=== PATIENT | male | born 1965 ===

== ENCOUNTER 2017-07-05 00:19 | Emergency (ER) | payer MEDICAID, OTHER ==
[2017-07-05 00:19] VITALS: BMI 25.1
[2017-07-05 00:44] VITALS: O2SAT 95
--- NOTE | 2017-07-05 00:47 | ED PDOC ---
HPI: General Adult Time Seen by Provider: 07/05/17 00:27 Chief Complaint (Nursing): Medical Clearance Chief Complaint (Provider): ETOH History Per: Patient Additional Complaint(s): Pt arrived with [place] pd, pt under police custody. Pt intoxicated and unsteady on his feet. Awake, alert and oriented x 3. Admits to drinking "3 beers " Denies trauma. Denies pain. Denies any other complaints. Past Medical History Reviewed: Nursing Documentation, Vital Signs, Unable To Obtain Vital Signs: Last Vital Signs Temp 98.0 F 07/05/17 00:30 Pulse 97 H 07/05/17 00:43 Resp 20 07/05/17 00:30 BP 147/88 07/05/17 00:30 Pulse Ox 95 07/05/17 00:47 - Family History Family History: States: Unknown Family Hx - Home Medications Home Medications: Ambulatory Orders Medication Instructions Recorded Unobtainable 04/19/17 - Allergies Allergies/Adverse Reactions: Allergies Allergy/AdvReac Type Severity Reaction Status Date / Time No Known Allergies Allergy Verified 04/19/17 11:46 Review of Systems ROS Statement: Except As Marked, All Systems Reviewed And Found Negative Physical Exam - Reviewed Nursing Documentation Reviewed: Yes Vital Signs Reviewed: Yes - Physical Exam Appears: Positive for: Well, Non-toxic, No Acute Distress Head Exam: Positive for: ATRAUMATIC, NORMAL INSPECTION, NORMOCEPHALIC Skin: Positive for: Normal Color, Warm, DRY Eye Exam: Positive for: EOMI, Normal appearance, PERRL ENT: Positive for: Normal ENT Inspection Neck: Positive for: Normal, Painless ROM Cardiovascular/Chest: Positive for: Regular Rate, Rhythm Respiratory: Positive for: CNT, Normal Breath Sounds Gastrointestinal/Abdominal: Positive for: Normal Exam, Bowel Sounds, Soft Back: Positive for: Normal Inspection Extremity: Positive for: Normal ROM Neurologic/Psych: Positive for: Alert, Oriented - Laboratory Results Result Diagrams: 07/05/17 00:55 07/05/17 00:55 - ECG O2 Sat by Pulse Oximetry: 95 Medical Decision Making Medical Decision Making: IV access established and treatment initiated with IVF. repeat pulse after police left ED, 97 ETOH 429 BUN 29 IVF running Pt remained asleep in ED overnight. Arousable to verbal stimuli Stable for discharge in am repeat pulse 68 Disposition - Clinical Impression Clinical Impression: Alcohol intoxication - Patient ED Disposition Is Patient to be Admitted: No - Disposition Disposition: Routine/Home Disposition Time: 05:51 Condition: STABLE Instructions: Alcohol Intoxication (ED) Forms: [facility] (Danish)
[2017-07-05 01:03] LABS: BASO # 0.1 K/uL (0.0-0.2); BASO % 1.8 % (0.0-2.0); EOS # 0.2 K/uL (0.0-0.7); EOS % 3.4 % (0.0-4.0); HEMOGLOBIN 13.3 g/dL (12.0-18.0); LYMPH # 1.4 K/uL (1.0-4.3); LYMPH % 26.3 % (20.0-40.0); MEAN CELL VOLUME 103.9 fl (80.0-94.0); MEAN CORPUSCULAR HEMOGLOBIN 34.6 pg (27.0-31.0); MEAN CORPUSCULAR HGB CONC 33.3 g/dL (33.0-37.0); MEAN PLATELET VOLUME 7.6 fl (7.2-11.7); MONO # 0.7 K/uL (0.0-0.8); MONO % 14.2 % (0.0-10.0); NEUT # 2.8 K/uL (1.8-7.0); NEUT % 54.3 % (50.0-75.0); NRBC % 0.2 % (0.0-0.0); RBC 3.85 Mil/uL (4.40-5.90); RED CELL DISTRIBUTION WIDTH 12.9 % (11.5-14.5); WHITE BLOOD COUNT 5.2 K/uL (4.8-10.8)
[2017-07-05 01:28] LABS: ALB/GLOB RATIO 1.3 (1.0-2.1); CALCIUM 8.9 mg/dL (8.4-10.2)
[2017-07-05] MEDS ORDERED: Sodium Chloride 0.9% 1,000 ML IV STA (05:46)
[2017-07-05 06:34] VITALS: BP 124/71; PULSE 78; RESP 16; TEMP 97.6
== END 2017-07-05 07:27 | disposition home or self-care (01) ==
LOC: H.ER 00:19
DX: F10.129 Alcohol abuse with intoxication, unspecified (principal)
CPT/HCPCS: 80053; 80320; 85025; 96360; 99282; J7040

== ENCOUNTER 2017-09-12 13:57 | Observation (INO) | payer MEDICAID, OTHER ==
[2017-09-12 13:57] VITALS: BMI 25.1
--- NOTE | 2017-09-12 14:39 | RAD ---
HISTORY: chills COMPARISON: No prior. TECHNIQUE: Chest PA and lateral FINDINGS: LUNGS: There is evidence of a left lower lobe infiltrate although a portion of the infiltrate may lie within the lingula. No right lung infiltrates are seen. PLEURA: No significant pleural effusion identified. No pneumothorax apparent. CARDIOVASCULAR: Heart is normal in size. Aorta is normal in size. No hilar enlargement is seen. No vascular congestion is noted. OSSEOUS STRUCTURES: No significant abnormalities. VISUALIZED UPPER ABDOMEN: Normal. OTHER FINDINGS: None. IMPRESSION: Left lower lung field pneumonia.
[2017-09-12] MEDS ORDERED: Multivitamin (MVI) 10 ML, Thiamine 100 MG, Folic Acid 1 MG in Sodium Chloride 0.9% 1,00... IV ONE (14:59)
[2017-09-12] MEDS ORDERED: cefTRIAXone 1,000 MG in Sterile Water for Inj 10 ML 25 ML IVPB STA (15:01)
[2017-09-12] MEDS ORDERED: Azithromycin 500 MG in Sodium Chloride 0.9% 250 ML IVPB STA (15:01)
[2017-09-12] MEDS ORDERED: cefTRIAXone (Rocephin) 1 gm Inj ONE (15:10)
[2017-09-12 15:38] LABS: GRANULAR CAST 8 /lpf (0-1); SQUAMOUS EPITHIAL 1 /hpf (0-5); URINE BACTERIA RARE (<OCC); URINE BILIRUBIN NEGATIVE (NEGATIVE); URINE BLOOD MODERATE (NEGATIVE); URINE CLARITY CLOUDY (Clear); URINE COLOR YELLOW (YELLOW); URINE GLUCOSE (UA) 150 mg/dL (Normal); URINE HYALINE CAST >20 /hpf (0-2); URINE LEUKOCYTE ESTERASE NEG Leu/uL (Negative); URINE PROTEIN 100 mg/dL (NEGATIVE); URINE UROBILINOGEN 0.2-1.0 mg/dL (0.2-1.0)
[2017-09-12 15:53] LABS: BASO % 0.8 % (0.0-2.0); EOS % 0.1 % (0.0-4.0); HEMOGLOBIN 12.7 g/dL (12.0-18.0); LYMPH # 0.5 K/uL (1.0-4.3); LYMPH % 7.9 % (20.0-40.0); MEAN CORPUSCULAR HEMOGLOBIN 34.6 pg (27.0-31.0); MEAN CORPUSCULAR HGB CONC 34.3 g/dL (33.0-37.0); MEAN PLATELET VOLUME 7.9 fl (7.2-11.7); MONO # 0.8 K/uL (0.0-0.8); MONO % 13.1 % (0.0-10.0); NEUT # 4.9 K/uL (1.8-7.0); NEUT % 78.1 % (50.0-75.0); NRBC % 0.1 % (0.0-0.0); PLATELET COUNT 142 K/uL (130-400); RBC 3.66 Mil/uL (4.40-5.90); RED CELL DISTRIBUTION WIDTH 12.9 % (11.5-14.5); WHITE BLOOD COUNT 6.3 K/uL (4.8-10.8)
[2017-09-12] MEDS ORDERED: Albuterol-Ipratrop 3 mg / 0.5 (3 ml) UD IH STA (16:01)
[2017-09-12 16:14] LABS: VENOUS BLOOD GAS BASE EXCESS 3.8 mmol/L (0.0-2.0); VENOUS BLOOD GAS PCO2 56 mmHg (40-60); VENOUS BLOOD GAS PO2 48 mm/Hg (30-55); VENOUS BLOOD PH 7.35 (7.32-7.43)
[2017-09-12] MEDS ORDERED: Albuterol-Ipratrop 3 mg / 0.5 (3 ml) UD ONE (16:30)
[2017-09-12 17:05] LABS: ALB/GLOB RATIO 1.2 (1.0-2.1); ALBUMIN 4.2 g/dL (3.5-5.0); ALT/SGPT 71 U/L (21-72); AST/SGOT 162 U/L (17-59); B-TYPE NATRIURETIC PEPTIDE 184 pg/ml (0-900); BLOOD UREA NITROGEN 15 mg/dl (9-20); GFR AFRICAN-AMERICAN > 60; GFR NON-AFRICAN AMERICAN > 60
[2017-09-12 17:05] LABS: BARBITURATES, UR NEGATIVE (NEGATIVE); BENZODIAZEPINES, UR NEGATIVE (NEGATIVE); OPIATES, UR POSITIVE (NEGATIVE); PHENCYCLIDINE, UR NEGATIVE (NEGATIVE)
[2017-09-12] MEDS ORDERED: Enoxaparin 80 mg Syringe SC STA (17:13)
--- NOTE | 2017-09-12 17:13 | ED PDOC ---
History of Present Illness History of Present Illness: 52 year old male presents to the emergency department complaining of feeling unwell. The patient states that he woke up this morning with nausea, vomiting, lightheadedness and chills. Admits to cough and bodyaches. He also reports some difficulty breathing. Patient admits to drinking daily and states that is last drink was yesterday. Patient further states that 2 days ago he fell hitting his head and he is unsure of how he fell. Denies headache, neck pain, back pain, urinary symptoms, recent travel, sick contacts, other injuries. Unsure if he had LOC from the fall. PMD: none HPI: Influenza Time Seen by Provider: 09/12/17 14:03 Chief Complaint: Cough, Cold, Congestion Chief Complaint (Provider): Difficulty Breathing, Lightheadedness, Chills, nausea History Per: Patient Exam Limitations: no limitations Onset/Duration Of Symptoms: Hrs Symptoms include: cough, vomiting, diarrhea, difficulty breathing. denies: fever Past Medical History Reviewed: Historical Data, Nursing Documentation, Vital Signs Vital Signs: Last Vital Signs Temp 96 F L 09/12/17 14:00 Pulse 100 H 09/12/17 14:00 Resp 20 09/12/17 14:00 BP 102/63 09/12/17 14:00 Pulse Ox 94 L 09/12/17 14:00 - Medical History PMH: No Chronic Diseases - Surgical History Surgical History: No Surg Hx - Family History Family History: States: Unknown Family Hx - Living Arrangements Living Arrangements: Other (adomicile) - Social History Current smoker - smoking cessation education provided: Yes (Heavy Smoker > 10 Cigarettes Daily) Ex-Smoker (has not smoked in the last 12 months): Yes Alcohol: < 2 Drinks/Day Drugs: Other (yes: unspecified) - Home Medications Home Medications: Ambulatory Orders Medication Instructions Recorded Unobtainable 04/19/17 - Allergies Allergies/Adverse Reactions: Allergies Allergy/AdvReac Type Severity Reaction Status Date / Time No Known Allergies Allergy Verified 09/12/17 14:02 Review of Systems ROS Statement: Except As Marked, All Systems Reviewed And Found Negative Constitutional: Positive for: Chills Respiratory: Positive for: Cough, Other (difficulty breathing) Gastrointestinal: Positive for: Nausea, Vomiting Physical Exam - Physical Exam Appears: Positive for: Non-toxic (ill-kept;odor of alcohol), No Acute Distress Head Exam: Negative for: ATRAUMATIC (Healing abrasion to right side of forehead ; Ecchymosis to left upper eyebrow) Skin: Positive for: Normal Color, Warm, Dry (found lice on pt). Negative for: Rash Eye Exam: Positive for: Normal appearance, EOMI, PERRL. Negative for: Nystagmus ENT: Positive for: Normal ENT Inspection, Nasal Congestion, Tonsillar Exudate, Other (mucus membranes dry). Negative for: Tonsillar Swelling Neck: Positive for: Normal, Painless ROM, Supple Cardiovascular/Chest: Positive for: Regular Rate, Rhythm, Chest Non Tender. Negative for: Gallop, Murmur, Tachycardia Respiratory: Positive for: Rhonchi (diffuse). Negative for: Wheezing, Respiratory Distress Gastrointestinal/Abdominal: Positive for: Normal Exam, Bowel Sounds, Soft. Negative for: Tenderness, Mass, Guarding, Rebound Back: Positive for: Normal Inspection. Negative for: L CVA Tenderness, R CVA Tenderness, Vertebral Tenderness Extremity: Positive for: Normal ROM. Negative for: Tenderness, Deformity, Swelling Neurologic/Psych: Positive for: Alert, hurricane tracker II-XII, Oriented, Gait. Negative for : Motor/Sensory Deficits Medical Decision Making Medical Decision Makin Initial Impression 52 year old male r/o Pnuemonia VS Stroke, Dehydration, alcohol abuse Initial Plan: * EKG * CT Head w.o Contrast * EKG * Alcohol Serum * B-type Natriuretic * CMP * Drug Screen * Troponin * CBC * CXR * NS 1000ml MVI 10mL Thiamin 100mg Folic Acid 1mg * Blood Culture * Rocephin 1000mg sterile water for INJ 25mL IVPB * Zithromax 500mg IVPB * Nebulizer treatment * Peak flow pre/post * Influenza A B * Urinalysis reevaluation 1437 Chest Xray : IMPRESSION: Left lower lung field pneumonia. EKG : ST at 104 bpm, (-) acute ST changes, as read by PA and ER MD. CXR results reviewed. Labs still pending. Zithro IV and rocephin IV ordered. Patient made aware. On re-evaluation, patient resting in bed comfortably, reports no new complaints. On exam, patient remains AAOx3, in no acute distress. Lab results reviewed : wbc 6.2, lactate 2.0, trop +0.26, UDS +opiates and cannabis. ER MD Dr. Hoang made aware of +trop. Patient immediately evaluated by ER MD. Agrees with current plan and treatment. Call placed to hospitalist and case d/w Dr. Christy, agrees to admit the patient to tele obs. Diagnostic results d/w the patient in great detail. Diagnosis of pneumonia and NSTEMI d/w the patient. Asa PO and lovenox SC ordered. Based on history, exam and diagnostic results, plan will be for inpatient observation. Patient states he fully agrees with and understands plan and disposition. Verbalized and repeated discharge instructions and plan. I have given the patient opportunity to ask any additional questions. Documented by Carole Culver acting as a scribe for Candi Sevilla PA-C. All medical record entries made by the Scribe were at my direction and personally dictated by me. I have reviewed the chart and agree that the record accurately reflects my personal performance of the history, physical exam, medical decision making, and the department course for this patient. I have also personally directed, reviewed, and agree with the discharge instructions and disposition. - Laboratory Results Result Diagrams: 09/12/17 15:42 09/12/17 15:42 - ECG O2 Sat by Pulse Oximetry: 94 (RA) Pulse Ox Interpretation: Normal Disposition - Clinical Impression Clinical Impression: Drug abuse, Pneumonia, NSTEMI (non-ST elevated myocardial infarction), Lice infestation - Patient ED Disposition Is Patient to be Admitted: Yes Counseled Patient/Family Regarding: Studies Performed, Diagnosis (tele obs) - Disposition Disposition Time: 17:17 Condition: STABLE
--- NOTE | 2017-09-12 17:27 | CT ---
PROCEDURE: CT HEAD WITHOUT CONTRAST. HISTORY: h/o head injury 2 days ago COMPARISON: None available. TECHNIQUE: Axial computed tomography images were obtained through the head/brain without intravenous contrast. Radiation dose: Total exam DLP = 828 mGy-cm. This CT exam was performed using one or more of the following dose reduction techniques: Automated exposure control, adjustment of the mA and/or kV according to patient size, and/or use of iterative reconstruction technique. FINDINGS: HEMORRHAGE: No intracranial hemorrhage. BRAIN: No mass effect or edema. Minor cerebral atrophy. A few subtle small vessel changes in the white matter tracts are also suspected. Posterior fossa is unremarkable. Pituitary gland is normal in size. No tonsillar ectopia is seen. VENTRICLES: Unremarkable. No hydrocephalus. CALVARIUM: Unremarkable. PARANASAL SINUSES: Mild mucosal changes are seen in the ethmoid air cells. Mastoid air cells are well aerated. MASTOID AIR CELLS: Unremarkable as visualized. No inflammatory changes. OTHER FINDINGS: There is evidence of a nonspecific smoothly marginated low-density cystic mass along the peripheral aspect of the left parotid gland measuring 2.6 x 2.0 x 2.2 centimeters. Further clinical evaluation of this probable parotid adenoma or cyst is suggested. IMPRESSION: No evidence of intracranial hemorrhage or recent infarct. Mild sinusitis. Nonspecific left parotid gland ovoid smoothly marginated low-density cyst requiring further clinical follow-up.
[2017-09-12] MEDS ORDERED: Sodium Chloride 3% for Inhalation 4 ML VIAL.NEB IH PRN (17:32)
[2017-09-12] MEDS ORDERED: Albuterol-Ipratrop 3 mg / 0.5 (3 ml) UD INH PRN (17:37)
--- NOTE | 2017-09-12 17:48 | CP.PCM.HP ---
History of Present Illness - History of Present Illness History of Present Illness: CC: dizzy, cough, chest pain HPI: 52M PMH likely COPD, cocaine use, daily ETOH use, presents to ED with 2-3 day history of worsening productive cough, associated with mild shortness of breath, chills, and worsening dizziness. Patient slept outside of the [facility] last night. Pt mildly hypoxic 88-91% uncertain of pt baseline, tachycardic 100s , normotensive, normal RR. Afebrile, no leukocytosis, neg flu, unremarkable ABG. CXR + LLL pneumonia. +UDS for opiates and cannabinoids. Pt also complained of vague chest pain, admits to cocaine use yesterday, although UDS neg for cocaine. Troponin elevated 0.268. Legionella and mycoplasma sent. HD stable, NAD. ROS: per HPI all other systems reviewed and negative by me PMSH: likely COPD, cocaine use, daily ETOH use FH: denies SH: cocaine use, daily ETOH use, 20 year smoking 1 ppd no home meds NKDA Present on Admission - Present on Admission Any Indicators Present on Admission: No Past Patient History - Infectious Disease Hx of Infectious Diseases: None - Past Social History Alcohol: < 2 Drinks/Day Drugs: Other (yes: unspecified) - PSYCHIATRIC Hx Substance Use: Yes - SURGICAL HISTORY Hx Surgeries: No - ANESTHESIA Hx Anesthesia: No Meds Allergies/Adverse Reactions: Allergies Allergy/AdvReac Type Severity Reaction Status Date / Time No Known Allergies Allergy Verified 09/12/17 14:02 Physical Exam - Constitutional Appears: Non-toxic, Unkempt Additional comments: appears ill - Head Exam Head Exam: ATRAUMATIC, NORMOCEPHALIC - Eye Exam Eye Exam: EOMI, Normal appearance, PERRL - ENT Exam ENT Exam: Mucous Membranes Moist, Normal Oropharynx - Respiratory Exam Respiratory Exam: Rhonchi, Wheezes Additional comments: mild dyspnea - Cardiovascular Exam Cardiovascular Exam: Tachycardia, REGULAR RHYTHM, +S1, +S2 - GI/Abdominal Exam GI & Abdominal Exam: Normal Bowel Sounds, Soft. absent: Mass, Organomegaly, Tenderness - Extremities Exam Extremities exam: Negative for: normal capillary refill, pedal pulses present - Back Exam Back exam: absent: CVA tenderness (L), CVA tenderness (R) - Neurological Exam Neurological exam: Alert, Oriented x3 - Psychiatric Exam Psychiatric exam: Normal Affect, Normal Mood - Skin Skin Exam: Dry, Warm Results - Vital Signs Recent Vital Signs: Last Vital Signs Temp 96 F L 09/12/17 14:00 Pulse 82 09/12/17 15:40 Resp 18 09/12/17 15:40 BP 124/85 09/12/17 15:40 Pulse Ox 94 L 09/12/17 17:39 - Labs Result Diagrams: 09/12/17 15:42 09/12/17 15:42 Labs: Laboratory Results - last 24 hr 09/12/17 09/12/17 09/12/17 14:20 15:15 15:15 WBC RBC Hgb Hct MCV MCH MCHC RDW Plt Count MPV Neut % (Auto) Lymph % (Auto) Prentiss % (Auto) Eos % (Auto) Baso % (Auto) Neut # (Auto) Lymph # (Auto) [place]iss # (Auto) Eos # (Auto) Baso # (Auto) pO2 VBG pH VBG pCO2 VBG HCO3 VBG Total CO2 VBG O2 Sat (Calc) VBG Base Excess VBG Potassium Glucose Lactate FiO2 Sodium Potassium Chloride Carbon Dioxide Anion Gap BUN Creatinine Est GFR ( Amer) Est GFR (Non-Af Amer) Random Glucose Calcium Total Bilirubin AST ALT Alkaline Phosphatase Troponin I NT-Pro-B Natriuret Pep Total Protein Albumin Globulin Albumin/Globulin Ratio Venous Blood Potassium Urine Color Yellow Urine Clarity Cloudy Urine pH 5.0 Ur Specific [place] 1.016 Urine Protein 100 Urine Glucose (UA) 150 Urine Ketones Negative Urine Blood Moderate Urine Nitrate Negative Urine Bilirubin Negative Urine Urobilinogen 0.2-1.0 Ur Leukocyte Esterase Neg Urine RBC (Auto) 12 H Urine Microscopic WBC 3 Ur Squamous Epith Cells 1 Urine Bacteria Rare Hyaline Casts >20 H Granular Casts (Auto) 8 Urine Opiates Screen Positive H Urine Methadone Screen Negative Ur Barbiturates Screen Negative Ur Phencyclidine Scrn Negative Ur Amphetamines Screen Negative U Benzodiazepines Scrn Negative U Oth Cocaine Metabols Negative U Cannabinoids Screen Positive H Alcohol, Quantitative Influenza Typ A,B (EIA) Negative for flu a/b 09/12/17 09/12/17 09/12/17 15:42 15:42 16:00 WBC 6.3 RBC 3.66 L Hgb 12.7 Hct 37.0 MCV 101.0 H D MCH 34.6 H MCHC 34.3 RDW 12.9 Plt Count 142 MPV 7.9 Neut % (Auto) 78.1 H Lymph % (Auto) 7.9 L [place] % (Auto) 13.1 H Eos % (Auto) 0.1 Baso % (Auto) 0.8 Neut # (Auto) 4.9 Lymph # (Auto) 0.5 L [place] # (Auto) 0.8 Eos # (Auto) 0.0 Baso # (Auto) 0.0 pO2 48 VBG pH 7.35 VBG pCO2 56 VBG HCO3 27.5 VBG Total CO2 32.6 H VBG O2 Sat (Calc) 88.5 H VBG Base Excess 3.8 H VBG Potassium 3.6 Glucose 94 Lactate 2.0 FiO2 21.0 Sodium 134 131.0 L Potassium 3.8 Chloride 89 L 95.0 L Carbon Dioxide 29 Anion Gap 20 BUN 15 Creatinine 0.9 Est GFR ( Amer) > 60 Est GFR (Non-Af Amer) > 60 Random Glucose 97 Calcium 9.0 Total Bilirubin 0.9 AST 162 H ALT 71 Alkaline Phosphatase 83 Troponin I 0.2680 H* NT-Pro-B Natriuret Pep 184 Total Protein 7.7 Albumin 4.2 Globulin 3.5 Albumin/Globulin Ratio 1.2 Venous Blood Potassium 3.6 Urine Color Urine Clarity Urine pH Ur Specific [place] Urine Protein Urine Glucose (UA) Urine Ketones Urine Blood Urine Nitrate Urine Bilirubin Urine Urobilinogen Ur Leukocyte Esterase Urine RBC (Auto) Urine Microscopic WBC Ur Squamous Epith Cells Urine Bacteria Hyaline Casts Granular Casts (Auto) Urine Opiates Screen Urine Methadone Screen Ur Barbiturates Screen Ur Phencyclidine Scrn Ur Amphetamines Screen U Benzodiazepines Scrn U Oth Cocaine Metabols U Cannabinoids Screen Alcohol, Quantitative < 10 Influenza Typ A,B (EIA) Assessment & Plan - Assessment and Plan (Free Text) Plan: 52M PMH likely COPD, cocaine use, daily ETOH use, presents to ED with 2-3 day history of worsening productive cough, associated with mild shortness of breath , chills, and worsening dizziness. Patient slept outside of [facility] last night. Pt mildly hypoxic 88-91% uncertain of pt baseline, tachycardic 100s, normotensive, normal RR. Afebrile, no leukocytosis, neg flu, unremarkable ABG. CXR + LLL pneumonia. +UDS for opiates and cannabinoids. Pt also complained of vague chest pain, admits to cocaine use yesterday, although UDS neg for cocaine. Troponin elevated 0.268. EKG no acute isch/ infarct +tachy, NSR. Mild QTc prolongation. Legionella and mycoplasma sent. HD stable, NAD. Pt also found to have body lice. Decon in ED, Permethrin tx x1. LLL Pneumonia Acute COPD exacerbation - mild dyspnea, mild wheezes upper, mild rhonchi lower - baseline O2 likely low 90s?, mild tachy, afebrile, no WBC - + CXR LLL pna - Azithromycin and Ceftriaxone day 1, switch to Levaquin, mild QT prolongation on EKG. - continue Duonebs q4 hours and PRN q2 - sputum culture, procalcitonin, mycoplasma and legionella pending - monitor, O2 PRN Chest pain Elevated Troponin - Tn 0.268, EKG Tachycardia, NSR no evidence of acute isch/infarct, +chest pain - Repeat enzymes [id number] 930pm 330am, EKG in AM - NO BETA BLOCKERS 2/2 cocaine use - +FULL AC Lovenox 75 MG q12 hours given CP and +Tn - ASA, plavix, no BB Mild QTc prolongation - avoid QT prolongation agents Tachycardia, Hypoxia - Dimer pending, if +, CTA - on full dose Lovenox ETOH abuse Cocaine abuse - banana bag in ED - Thiamine, Folic acid daily - Librium 10 mg PO q8 hours PRN withdrawal sx Body Lice - Permethrin tx x1 VTE ppx - full dose lovenox
[2017-09-12] MEDS ORDERED: Permethrin 5% CREAM TOP ONE (18:25)
[2017-09-12 19:07] LABS: LYMPHOCYTE 6 % (20-50); MONOCYTE 8 % (0-10); NEUTROPHIL 86 % (42-75); PLATELET ESTIMATE SLIGHTLY DECREASED (NORMAL); TOTAL CELLS COUNTED 100
[2017-09-12 19:08] LABS: ANISOCYTOSIS SLIGHT; LARGE PLATELETS PRESENT; OVALOCYTES SLIGHT
[2017-09-13] MEDS: Albuterol-Ipratrop 3 mg / 0.5 (3 ml) UD INH SCH ×7 (00:11→23:33)
[2017-09-13] MEDS ORDERED: Enoxaparin 80 mg Syringe SC SCH (05:30)
[2017-09-13 06:07] LABS: BASO % 0.7 % (0.0-2.0); EOS # 0.1 K/uL (0.0-0.7); EOS % 1.6 % (0.0-4.0); HEMOGLOBIN 10.9 g/dL (12.0-18.0); LYMPH # 1.2 K/uL (1.0-4.3); LYMPH % 20.9 % (20.0-40.0); MEAN CORPUSCULAR HEMOGLOBIN 34.1 pg (27.0-31.0); MEAN CORPUSCULAR HGB CONC 33.4 g/dL (33.0-37.0); MEAN PLATELET VOLUME 8.3 fl (7.2-11.7); MONO # 0.6 K/uL (0.0-0.8); MONO % 10.4 % (0.0-10.0); NEUT % 66.4 % (50.0-75.0); NRBC % 0.1 % (0.0-0.0); RBC 3.21 Mil/uL (4.40-5.90); RED CELL DISTRIBUTION WIDTH 13.1 % (11.5-14.5)
[2017-09-13 06:24] LABS: BLOOD UREA NITROGEN 12 mg/dl (9-20); CALCIUM 8.5 mg/dL (8.4-10.2); GFR AFRICAN-AMERICAN > 60; GFR NON-AFRICAN AMERICAN > 60
--- NOTE | 2017-09-13 08:52 | CARD ---
APPROVED REPORT EKG Measurement Heart [id number] <Conclusion> Sinus tachycardia Otherwise normal ECG
[2017-09-13] MEDS ORDERED: levoFLOXacin 750 mg in D5W 750 MG/150 ML BAG IVPB SCH (09:00)
[2017-09-13] MEDS ORDERED: levoFLOXacin 750 mg in D5W 150 ML BAG IVPB SCH (09:00)
[2017-09-13] MEDS ORDERED: Azithromycin 500 MG in Sodium Chloride 0.9% 250 ML IVPB SCH (09:00)
--- NOTE | 2017-09-13 09:22 | CP.PCM.CON ---
History of Present Illness - History of Present Illness History of Present Illness: This 52-year-old man who has had multiple visits to the emergency room at this institution and a nearby hospital for substance abuse and admits to using cocaine and alcohol frequently, came to the emergency room with complaints of malaise and body ache nausea and also mention having had some chest discomfort. The patient has been chronically drinking heavily and often uses cocaine. His urinalysis has shown evidence of recent use of cannabis and opiates. He is a smoker and denies any history of hypertension or diabetes or prior myocardial infarction. Physical examination shows a middle aged man alert awake and coherent. Afebrile with a pulse rate of 74 bpm regular and a blood pressure of 136/74 mmHg. His jugular venous pressure was not elevated and there was no edema or lower extremity. The pedal pulses are well felt. There were no carotid bruits. The chest was mildly emphysematous. The first and second heart sounds were normal the apex was not palpable. There was no gallop and there were no murmurs. Abdomen was soft liver and spleen are not palpable. His electrocardiogram showed sinus rhythm at 104 bpm with a normal EKG pattern. Troponin levels were elevated on 3 consecutive lab tests and the levels were flat.. The rest of his labs were noted. Impression : Atypical chest pain. The pattern of troponin elevation does not indicate abrupt myocyte injury such as acute myocardial infarction. A flat troponin elevation strongly suggests chronic troponin leak than an acute myocardial infarction. The patient is hemodynamically stable and chest pain- free. He certainly needs help for chronic alcohol and cocaine abuse. No further cardiac intervention is recommended. Past Patient History - Infectious Disease Hx of Infectious Diseases: None - Past Medical History & Family History Past Medical History?: No - Past Social History Smoking Status: Light Smoker < 10 Cigarettes Daily - CARDIAC Hx Cardiac Disorders: No - PULMONARY Hx Respiratory Disorders: No - NEUROLOGICAL Hx Neurological Disorder: No - HEENT Hx HEENT Problems: No - RENAL Hx Chronic Kidney Disease: No - ENDOCRINE/METABOLIC Hx Endocrine Disorders: No - HEMATOLOGICAL/ONCOLOGICAL Hx Blood Disorders: No - INTEGUMENTARY Hx Dermatological Problems: No - MUSCULOSKELETAL/RHEUMATOLOGICAL Hx Musculoskeletal Disorders: No Hx Falls: Yes - GASTROINTESTINAL Hx Gastrointestinal Disorders: No - GENITOURINARY/GYNECOLOGICAL Hx Genitourinary Disorders: No - PSYCHIATRIC Hx Psychophysiologic Disorder: No Hx Substance Use: Yes (cocaine and marijuana) - SURGICAL HISTORY Hx Surgeries: Yes Hx Herniorrhaphy: Yes (at 6yrs old) - ANESTHESIA Hx Anesthesia: No Meds Allergies/Adverse Reactions: Allergies Allergy/AdvReac Type Severity Reaction Status Date / Time No Known Allergies Allergy Verified 09/12/17 14:02 - Medications Medications: Current Medications Acetaminophen (Tylenol 325mg Tab) 650 mg PO Q6 PRN PRN Reason: Fever >100.4 F Albuterol/Ipratropium (Duoneb 3 Mg/0.5 Mg (3 Ml) Ud) 3 ml INH RQ2 PRN PRN Reason: Shortness of Breath Albuterol/Ipratropium (Duoneb 3 Mg/0.5 Mg (3 Ml) Ud) 3 ml INH RQ4 [facility] Last Admin: 09/13/17 08:06 Dose: 3 ml Aspirin (Ecotrin) 81 mg PO DAILY [facility] Chlordiazepoxide (Librium) 25 mg PO Q8 [facility] Clopidogrel Bisulfate (Plavix) 75 mg PO DAILY [facility] Enoxaparin Sodium (Lovenox) 75 mg SC Q12@0530,1730 [facility] PRN Reason: Protocol Last Admin: 09/13/17 04:45 Dose: 75 mg Folic Acid 1 mg/ Sodium (Chloride) 100.2 mls @ 60 mls/hr IVPB DAILY [facility] Ceftriaxone Sodium 1 gm/ (Sodium Chloride) 100 mls @ 100 mls/hr IVPB DAILY [facility] PRN Reason: Protocol Levofloxacin/Dextrose (Levaquin 750mg) 750 mg in 150 mls @ 75 mls/hr IVPB DAILY [facility] Lorazepam (Ativan) 2 mg IVP Q6 PRN PRN Reason: treors Thiamine HCl (Vitamin B1 Tab) 100 mg PO DAILY [facility] Results - Vital Signs Recent Vital Signs: Last Vital Signs Temp 98.8 F 09/13/17 08:00 Pulse 79 09/13/17 08:00 Resp 20 09/13/17 08:00 BP 110/60 09/13/17 08:00 Pulse Ox 96 09/13/17 08:00 - Labs Result Diagrams: 09/13/17 05:30 09/13/17 05:30 Labs: Laboratory Results - last 24 hr 09/12/17 09/12/17 09/12/17 14:20 15:15 15:15 WBC RBC Hgb Hct MCV MCH MCHC RDW Plt Count MPV Neut % (Auto) Lymph % (Auto) [place] % (Auto) Eos % (Auto) Baso % (Auto) Neut # (Auto) Lymph # (Auto) [place] # (Auto) Eos # (Auto) Baso # (Auto) Neutrophils % (Manual) Lymphocytes % (Manual) Monocytes % (Manual) Platelet Estimate Large Platelets Anisocytosis (manual) Macrocytosis (manual) Ovalocytes D-Dimer, Quantitative pO2 VBG pH VBG pCO2 VBG HCO3 VBG Total CO2 VBG O2 Sat (Calc) VBG Base Excess VBG Potassium Glucose Lactate FiO2 Sodium Potassium Chloride Carbon Dioxide Anion Gap BUN Creatinine Est GFR ( Amer) Est GFR (Non-Af Amer) Random Glucose Calcium Total Bilirubin AST ALT Alkaline Phosphatase Troponin I NT-Pro-B Natriuret Pep Total Protein Albumin Globulin Albumin/Globulin Ratio Venous Blood Potassium Urine Color Yellow Urine Clarity Cloudy Urine pH 5.0 Ur Specific [place] 1.016 Urine Protein 100 Urine Glucose (UA) 150 Urine Ketones Negative Urine Blood Moderate Urine Nitrate Negative Urine Bilirubin Negative Urine Urobilinogen 0.2-1.0 Ur Leukocyte Esterase Neg Urine RBC (Auto) 12 H Urine Microscopic WBC 3 Ur Squamous Epith Cells 1 Urine Bacteria Rare Hyaline Casts >20 H Granular Casts (Auto) 8 Urine Opiates Screen Positive H Urine Methadone Screen Negative Ur Barbiturates Screen Negative Ur Phencyclidine Scrn Negative Ur Amphetamines Screen Negative U Benzodiazepines Scrn Negative U Oth Cocaine Metabols Negative U Cannabinoids Screen Positive H Alcohol, Quantitative Influenza Typ A,B (EIA) Negative for flu a/b 09/12/17 09/12/17 09/12/17 15:42 15:42 16:00 WBC 6.3 RBC 3.66 L Hgb 12.7 Hct 37.0 MCV 101.0 H D MCH 34.6 H MCHC 34.3 RDW 12.9 Plt Count 142 MPV 7.9 Neut % (Auto) 78.1 H Lymph % (Auto) 7.9 L [place] % (Auto) 13.1 H Eos % (Auto) 0.1 Baso % (Auto) 0.8 Neut # (Auto) 4.9 Lymph # (Auto) 0.5 L [place] # (Auto) 0.8 Eos # (Auto) 0.0 Baso # (Auto) 0.0 Neutrophils % (Manual) 86 H Lymphocytes % (Manual) 6 L Monocytes % (Manual) 8 Platelet Estimate Slightly decreased L Large Platelets Present Anisocytosis (manual) Slight Macrocytosis (manual) Slight Ovalocytes Slight D-Dimer, Quantitative pO2 48 VBG pH 7.35 VBG pCO2 56 VBG HCO3 27.5 VBG Total CO2 32.6 H VBG O2 Sat (Calc) 88.5 H VBG Base Excess 3.8 H VBG Potassium 3.6 Glucose 94 Lactate 2.0 FiO2 21.0 Sodium 134 131.0 L Potassium 3.8 Chloride 89 L 95.0 L Carbon Dioxide 29 Anion Gap 20 BUN 15 Creatinine 0.9 Est GFR ( Amer) > 60 Est GFR (Non-Af Amer) > 60 Random Glucose 97 Calcium 9.0 Total Bilirubin 0.9 AST 162 H ALT 71 Alkaline Phosphatase 83 Troponin I 0.2680 H* NT-Pro-B Natriuret Pep 184 Total Protein 7.7 Albumin 4.2 Globulin 3.5 Albumin/Globulin Ratio 1.2 Venous Blood Potassium 3.6 Urine Color Urine Clarity Urine pH Ur Specific [place] Urine Protein Urine Glucose (UA) Urine Ketones Urine Blood Urine Nitrate Urine Bilirubin Urine Urobilinogen Ur Leukocyte Esterase Urine RBC (Auto) Urine Microscopic WBC Ur Squamous Epith Cells Urine Bacteria Hyaline Casts Granular Casts (Auto) Urine Opiates Screen Urine Methadone Screen Ur Barbiturates Screen Ur Phencyclidine Scrn Ur Amphetamines Screen U Benzodiazepines Scrn U Oth Cocaine Metabols U Cannabinoids Screen Alcohol, Quantitative < 10 Influenza Typ A,B (EIA) 09/12/17 09/12/17 09/13/17 17:58 21:30 05:30 WBC 6.0 RBC 3.21 L Hgb 10.9 L Hct 32.8 L MCV 102.0 H MCH 34.1 H MCHC 33.4 RDW 13.1 Plt Count 128 L MPV 8.3 Neut % (Auto) 66.4 Lymph % (Auto) 20.9 [place] % (Auto) 10.4 H Eos % (Auto) 1.6 Baso % (Auto) 0.7 Neut # (Auto) 4.0 Lymph # (Auto) 1.2 [place] # (Auto) 0.6 Eos # (Auto) 0.1 Baso # (Auto) 0.0 Neutrophils % (Manual) Lymphocytes % (Manual) Monocytes % (Manual) Platelet Estimate Large Platelets Anisocytosis (manual) Macrocytosis (manual) Ovalocytes D-Dimer, Quantitative 161 pO2 VBG pH VBG pCO2 VBG HCO3 VBG Total CO2 VBG O2 Sat (Calc) VBG Base Excess VBG Potassium Glucose Lactate FiO2 Sodium Potassium Chloride Carbon Dioxide Anion Gap BUN Creatinine Est GFR ( Amer) Est GFR (Non-Af Amer) Random Glucose Calcium Total Bilirubin AST ALT Alkaline Phosphatase Troponin I 0.2460 H* NT-Pro-B Natriuret Pep Total Protein Albumin Globulin Albumin/Globulin Ratio Venous Blood Potassium Urine Color Urine Clarity Urine pH Ur Specific [place] Urine Protein Urine Glucose (UA) Urine Ketones Urine Blood Urine Nitrate Urine Bilirubin Urine Urobilinogen Ur Leukocyte Esterase Urine RBC (Auto) Urine Microscopic WBC Ur Squamous Epith Cells Urine Bacteria Hyaline Casts Granular Casts (Auto) Urine Opiates Screen Urine Methadone Screen Ur Barbiturates Screen Ur Phencyclidine Scrn Ur Amphetamines Screen U Benzodiazepines Scrn U Oth Cocaine Metabols U Cannabinoids Screen Alcohol, Quantitative Influenza Typ A,B (EIA) 09/13/17 09/13/17 05:30 05:30 WBC RBC Hgb Hct MCV MCH MCHC RDW Plt Count MPV Neut % (Auto) Lymph % (Auto) [place] % (Auto) Eos % (Auto) Baso % (Auto) Neut # (Auto) Lymph # (Auto) [place] # (Auto) Eos # (Auto) Baso # (Auto) Neutrophils % (Manual) Lymphocytes % (Manual) Monocytes % (Manual) Platelet Estimate Large Platelets Anisocytosis (manual) Macrocytosis (manual) Ovalocytes D-Dimer, Quantitative pO2 VBG pH VBG pCO2 VBG HCO3 VBG Total CO2 VBG O2 Sat (Calc) VBG Base Excess VBG Potassium Glucose Lactate FiO2 Sodium 134 Potassium 3.7 Chloride 95 L Carbon Dioxide 28 Anion Gap 15 BUN 12 Creatinine 0.8 Est GFR ( Amer) > 60 Est GFR (Non-Af Amer) > 60 Random Glucose 79 Calcium 8.5 Total Bilirubin AST ALT Alkaline Phosphatase Troponin I 0.2180 H* NT-Pro-B Natriuret Pep Total Protein Albumin Globulin Albumin/Globulin Ratio Venous Blood Potassium Urine Color Urine Clarity Urine pH Ur Specific [place] Urine Protein Urine Glucose (UA) Urine Ketones Urine Blood Urine Nitrate Urine Bilirubin Urine Urobilinogen Ur Leukocyte Esterase Urine RBC (Auto) Urine Microscopic WBC Ur Squamous Epith Cells Urine Bacteria Hyaline Casts Granular Casts (Auto) Urine Opiates Screen Urine Methadone Screen Ur Barbiturates Screen Ur Phencyclidine Scrn Ur Amphetamines Screen U Benzodiazepines Scrn U Oth Cocaine Metabols U Cannabinoids Screen Alcohol, Quantitative Influenza Typ A,B (EIA)
--- NOTE | 2017-09-13 15:39 | CP.PCM.PN ---
Subjective - Date & Time of Evaluation Date of Evaluation: 09/13/17 Time of Evaluation: 08:00 - Subjective Subjective: Patient seen and examined bedside. Complains of mid sternal sharp chest pain continuos as well as body aches and pain.No acute issues overnight with minmal tremors and tachycardic HR 100 Afebrile Objective - Vital Signs/Intake and Output Vital Signs (last 24 hours): Temp Pulse Resp BP Pulse Ox 99.1 F 87 20 94/52 L 99 09/13/17 15:20 09/13/17 15:20 09/13/17 15:20 09/13/17 15:20 09/13/17 15:20 - Medications Medications: Current Medications Acetaminophen (Tylenol 325mg Tab) 650 mg PO Q6 PRN PRN Reason: Fever >100.4 F Albuterol/Ipratropium (Duoneb 3 Mg/0.5 Mg (3 Ml) Ud) 3 ml INH RQ2 PRN PRN Reason: Shortness of Breath Albuterol/Ipratropium (Duoneb 3 Mg/0.5 Mg (3 Ml) Ud) 3 ml INH RQ4 [facility] Last Admin: 09/13/17 15:17 Dose: 3 ml Aspirin (Ecotrin) 81 mg PO DAILY [facility] Last Admin: 09/13/17 09:16 Dose: 81 mg Chlordiazepoxide (Librium) 25 mg PO Q8 [facility] Last Admin: 09/13/17 09:16 Dose: 25 mg Clopidogrel Bisulfate (Plavix) 75 mg PO DAILY [facility] Last Admin: 09/13/17 09:16 Dose: 75 mg Enoxaparin Sodium (Lovenox) 75 mg SC Q12@0530,1730 [facility] PRN Reason: Protocol Last Admin: 09/13/17 04:45 Dose: 75 mg Folic Acid 1 mg/ Sodium (Chloride) 100.2 mls @ 60 mls/hr IVPB DAILY [facility] Last Admin: 09/13/17 09:19 Dose: 60 mls/hr Ceftriaxone Sodium 1 gm/ (Sodium Chloride) 100 mls @ 100 mls/hr IVPB DAILY [facility] PRN Reason: Protocol Last Admin: 09/13/17 09:18 Dose: 100 mls/hr Levofloxacin/Dextrose (Levaquin 750mg) 750 mg in 150 mls @ 75 mls/hr IVPB DAILY [facility] Last Admin: 09/13/17 09:20 Dose: 75 mls/hr Lorazepam (Ativan) 2 mg IVP Q6 PRN PRN Reason: treors Thiamine HCl (Vitamin B1 Tab) 100 mg PO DAILY [facility] Last Admin: 09/13/17 09:16 Dose: 100 mg - Labs Labs: 09/13/17 05:30 09/13/17 05:30 - Constitutional Appears: Non-toxic, No Acute Distress - Head Exam Head Exam: ATRAUMATIC, NORMAL INSPECTION, NORMOCEPHALIC - Eye Exam Eye Exam: EOMI, PERRL Pupil Exam: NORMAL ACCOMODATION - ENT Exam ENT Exam: Mucous Membranes Moist, Normal Exam - Neck Exam Neck Exam: Full ROM, Normal Inspection - Respiratory Exam Respiratory Exam: Clear to Ausculation Bilateral, NORMAL BREATHING PATTERN. absent: Rales, Rhonchi, Wheezes, Respiratory Distress - Cardiovascular Exam Cardiovascular Exam: Tachycardia, REGULAR RHYTHM, +S1, +S2. absent: JVD - GI/Abdominal Exam GI & Abdominal Exam: Soft, Normal Bowel Sounds. absent: Distended, Guarding, Tenderness, Rebound - Rectal Exam Rectal Exam: Deferred - Extremities Exam Extremities Exam: Full ROM, Normal Capillary Refill, Normal Inspection. absent : Pedal Edema - Back Exam Back Exam: NORMAL INSPECTION - Neurological Exam Neurological Exam: Alert, Awake, CN II-XII Intact, Oriented x3 - Psychiatric Exam Psychiatric exam: Normal Affect Additional comments: mild tremors - Skin Skin Exam: Dry, Intact, Normal Color, Warm Assessment and Plan - Assessment and Plan (Free Text) Assessment: 52 y/o M homeless with PMH daily ETOH use,substance abuse presented to ED with 2-3 day history of worsening productive cough, associated with mild shortness of breath, chills, and worsening dizziness. Patient slept outside of the nursing home last night. He was mildly hypoxic 88-91% in ED ,tachycardic 100s, normotensive, normal RR. Afebrile, no leukocytosis, neg flu, unremarkable ABG. CXR showed + LLL pneumonia. +UDS for opiates and cannabinoids. Patient also complained of chest pain and admitted to cocaine use yesterday , although UDS neg for cocaine. Troponin was elevated 0.268. EKG no acute isch/ infarct +tachy, NSR. Mild QTc prolongation. Legionella and mycoplasma sent. HD stable, NAD. Pt also found to have body lice. Decon in ED, Permethrin tx x1. He was placed under observation in telemtery, trop cycled x 3, cardiology consulted Started on rocephin and zithromax IV for LLL pneumonia, Thiamine, falic acid, Librium RTC and Ativan PRN for withdrawal symptoms 1.Chest pain Elevated Troponin troponin x3 elevated but flat cardiology consulted and case discussed with EKG showed no ST-T wave changes . Most likely troponin elevation not related to acute ischemia and chest pain most likely i sarypical Will d/c therapeutic lovenox 2.LLL Pneumonia seen on Xray smoker -- suspected COPD at present in no respiratory distress Continue rocephin and zithromax IV Afrebrile and with no WBC count continue Duonebs q4 hours and PRN q2 f/u sputum culture, procalcitonin, mycoplasma and legionellaAg 3.Mild QTc prolongation avoid QT prolongation agents 4.ETOH abuse/ withdrawal precautions substance abuse ,cocaine, cannabis abuse Thiamine, Folic acid daily With minimal tremors and tachycardia Continue Libriyum 25 mg po q8 [facility] PRN 5.Body Lice treated with Permethrin tx x1 6.Homeless 7. VTE ppx lovenox
[2017-09-13 23:59] VITALS: RESP 18
[2017-09-14] MEDS: Albuterol-Ipratrop 3 mg / 0.5 (3 ml) UD INH SCH ×4 (05:10→15:20)
[2017-09-14 05:50] LABS: HEMOGLOBIN 11.7 g/dL (12.0-18.0); MEAN CELL VOLUME 101.4 fl (80.0-94.0); MEAN CORPUSCULAR HEMOGLOBIN 33.8 pg (27.0-31.0); MEAN CORPUSCULAR HGB CONC 33.3 g/dL (33.0-37.0); RBC 3.47 Mil/uL (4.40-5.90); RED CELL DISTRIBUTION WIDTH 13.2 % (11.5-14.5); WHITE BLOOD COUNT 5.1 K/uL (4.8-10.8)
[2017-09-14 06:06] LABS: BLOOD UREA NITROGEN 10 mg/dl (9-20); CALCIUM 8.8 mg/dL (8.4-10.2); GFR AFRICAN-AMERICAN > 60; GFR NON-AFRICAN AMERICAN > 60
[2017-09-14] MEDS ORDERED: Potassium Chloride 20 mEq ER Tab PO ONE (08:48)
[2017-09-14] MEDS ORDERED: Enoxaparin 40 mg Syringe SC SCH (09:00)
[2017-09-14] MEDS ORDERED: Azithromycin 500 MG in Sodium Chloride 0.9% 250 ML IVPB SCH (09:00)
--- NOTE | 2017-09-14 14:58 | CP.PCM.DIS ---
Provider - Provider Date of Admission: 09/12/17 17:17 Attending physician: Yesenia Christy DO Consults: Cardio : Dr Nathen Akhtar Time Spent in preparation of Discharge (in minutes): 40 Diagnosis - Discharge Diagnosis (1) Chest pain Status: Acute (2) Drug abuse Status: Acute (3) Lice infestation Status: Acute (4) Alcohol intoxication Status: Acute (5) Elevated troponin Status: Acute Hospital Course - Lab Results Lab Results: Micro Results 09/12/17 16:00 Blood Blood Culture - Preliminary NO GROWTH AFTER 24 HOURS 09/12/17 15:41 Blood Blood Culture - Preliminary NO GROWTH AFTER 24 HOURS Most Recent Lab Values WBC 5.1 K/uL (4.8-10.8) 09/14/17 04:20 RBC 3.47 Mil/uL (4.40-5.90) L 09/14/17 04:20 Hgb 11.7 g/dL (12.0-18.0) L 09/14/17 04:20 Hct 35.2 % (35.0-51.0) 09/14/17 04:20 MCV 101.4 fl (80.0-94.0) H 09/14/17 04:20 MCH 33.8 pg (27.0-31.0) H 09/14/17 04:20 MCHC 33.3 g/dL (33.0-37.0) 09/14/17 04:20 RDW 13.2 % (11.5-14.5) 09/14/17 04:20 Plt Count 141 K/uL (130-400) 09/14/17 04:20 MPV 8.3 fl (7.2-11.7) 09/13/17 05:30 Neut % (Auto) 66.4 % (50.0-75.0) 09/13/17 05:30 Lymph % (Auto) 20.9 % (20.0-40.0) 09/13/17 05:30 [place] % (Auto) 10.4 % (0.0-10.0) H 09/13/17 05:30 Eos % (Auto) 1.6 % (0.0-4.0) 09/13/17 05:30 Baso % (Auto) 0.7 % (0.0-2.0) 09/13/17 05:30 Neut # (Auto) 4.0 K/uL (1.8-7.0) 09/13/17 05:30 Lymph # (Auto) 1.2 K/uL (1.0-4.3) 09/13/17 05:30 [place] # (Auto) 0.6 K/uL (0.0-0.8) 09/13/17 05:30 Eos # (Auto) 0.1 K/uL (0.0-0.7) 09/13/17 05:30 Baso # (Auto) 0.0 K/uL (0.0-0.2) 09/13/17 05:30 Neutrophils % (Manual) 86 % (42-75) H 09/12/17 15:42 Lymphocytes % (Manual) 6 % (20-50) L 09/12/17 15:42 Monocytes % (Manual) 8 % (0-10) 09/12/17 15:42 Platelet Estimate Slightly decreased (NORMAL) L 09/12/17 15:42 Large Platelets Present 09/12/17 15:42 Anisocytosis (manual) Slight 09/12/17 15:42 Macrocytosis (manual) Slight 09/12/17 15:42 Ovalocytes Slight 09/12/17 15:42 D-Dimer, Quantitative 161 ng/mlDDU (0-230) 09/12/17 17:58 pO2 48 mm/Hg (30-55) 09/12/17 16:00 VBG pH 7.35 (7.32-7.43) 09/12/17 16:00 VBG pCO2 56 mmHg (40-60) 09/12/17 16:00 VBG HCO3 27.5 mmol/L 09/12/17 16:00 VBG Total CO2 32.6 mmol/L (22-28) H 09/12/17 16:00 VBG O2 Sat (Calc) 88.5 % (40-65) H 09/12/17 16:00 VBG Base Excess 3.8 mmol/L (0.0-2.0) H 09/12/17 16:00 VBG Potassium 3.6 mmol/L (3.6-5.2) 09/12/17 16:00 Sodium 131.0 mmol/L (132-148) L 09/12/17 16:00 Chloride 95.0 mmol/L (98-107) L 09/12/17 16:00 Glucose 94 mg/dL (75-110) 09/12/17 16:00 Lactate 2.0 mmol/L (0.7-2.1) 09/12/17 16:00 FiO2 21.0 % 09/12/17 16:00 Sodium 137 mmol/l (132-148) 09/14/17 04:20 Potassium 3.5 MMOL/L (3.6-5.0) L 09/14/17 04:20 Chloride 100 mmol/L (98-107) 09/14/17 04:20 Carbon Dioxide 30 mmol/L (22-30) 09/14/17 04:20 Anion Gap 11 (10-20) 09/14/17 04:20 BUN 10 mg/dl (9-20) 09/14/17 04:20 Creatinine 0.8 mg/dl (0.8-1.5) 09/14/17 04:20 Est GFR ( Amer) > 60 09/14/17 04:20 Est GFR (Non-Af Amer) > 60 09/14/17 04:20 Random Glucose 97 mg/dL (75-110) 09/14/17 04:20 Calcium 8.8 mg/dL (8.4-10.2) 09/14/17 04:20 Total Bilirubin 0.9 mg/dl (0.2-1.3) 09/12/17 15:42 AST 162 U/L (17-59) H 09/12/17 15:42 ALT 71 U/L (21-72) 09/12/17 15:42 Alkaline Phosphatase 83 U/L (38-126) 09/12/17 15:42 Troponin I 0.0800 ng/mL (0.00-0.120) 09/14/17 08:36 NT-Pro-B Natriuret Pep 184 pg/ml (0-900) 09/12/17 15:42 Total Protein 7.7 G/DL (6.3-8.2) 09/12/17 15:42 Albumin 4.2 g/dL (3.5-5.0) 09/12/17 15:42 Globulin 3.5 gm/dL (2.2-3.9) 09/12/17 15:42 Albumin/Globulin Ratio 1.2 (1.0-2.1) 09/12/17 15:42 Procalcitonin 0.53 NG/ML (0.19-0.49) H 09/12/17 18:30 Venous Blood Potassium 3.6 mmol/L (3.6-5.2) 09/12/17 16:00 Urine Color Yellow (YELLOW) 09/12/17 15:15 Urine Clarity Cloudy (Clear) 09/12/17 15:15 Urine pH 5.0 (5.0-8.0) 09/12/17 15:15 Ur Specific [place] 1.016 (1.003-1.030) 09/12/17 15:15 Urine Protein 100 mg/dL (NEGATIVE) 09/12/17 15:15 Urine Glucose (UA) 150 mg/dL (Normal) 09/12/17 15:15 Urine Ketones Negative mg/dL (NEGATIVE) 09/12/17 15:15 Urine Blood Moderate (NEGATIVE) 09/12/17 15:15 Urine Nitrate Negative (NEGATIVE) 09/12/17 15:15 Urine Bilirubin Negative (NEGATIVE) 09/12/17 15:15 Urine Urobilinogen 0.2-1.0 mg/dL (0.2-1.0) 09/12/17 15:15 Ur Leukocyte Esterase Neg Janae/uL (Negative) 09/12/17 15:15 Urine RBC (Auto) 12 /hpf (0-3) H 09/12/17 15:15 Urine Microscopic WBC 3 /hpf (0-5) 09/12/17 15:15 Ur Squamous Epith Cells 1 /hpf (0-5) 09/12/17 15:15 Urine Bacteria Rare (<OCC) 09/12/17 15:15 Hyaline Casts >20 /hpf (0-2) H 09/12/17 15:15 Granular Casts (Auto) 8 /lpf (0-1) 09/12/17 15:15 Urine Opiates Screen Positive (NEGATIVE) H 09/12/17 15:15 Urine Methadone Screen Negative (NEGATIVE) 09/12/17 15:15 Ur Barbiturates Screen Negative (NEGATIVE) 09/12/17 15:15 Ur Phencyclidine Scrn Negative (NEGATIVE) 09/12/17 15:15 Ur Amphetamines Screen Negative (NEGATIVE) 09/12/17 15:15 U Benzodiazepines Scrn Negative (NEGATIVE) 09/12/17 15:15 U Oth Cocaine Metabols Negative (NEGATIVE) 09/12/17 15:15 U Cannabinoids Screen Positive (NEGATIVE) H 09/12/17 15:15 Alcohol, Quantitative < 10 mg/dl (0-10) 09/12/17 15:42 Influenza Typ A,B (EIA) Negative for flu a/b (NEGATIVE) 09/12/17 14:20 Ur L.pneumophila Ag Negative (NEGATIVE) 09/12/17 20:09 - Hospital Course Hospital Course: 52 y/o M homeless with PMH daily ETOH use,substance abuse presented to ED with 2-3 day history of worsening productive cough, associated with mild shortness of breath, chills, and worsening dizziness. Patient slept outside of the [facility] last night. He was mildly hypoxic 88-91% in ED ,tachycardic 100s, normotensive, normal RR, Afebrile, no leukocytosis, negative flu, unremarkable ABG. C XR showed + LLL pneumonia. +UDS for opiates and cannabinoids. Patient also complained of chest pain and admitted to cocaine use the vday before although UDS neg for cocaine. Troponin was elevated 0.268. EKG no acute ischemia/infarct +tachy, NSR. Mild QTc prolongation. Legionella negative HD stable, NAD. Pt also found to have body lice. Decontaminated in ED, Permethrin treatment done. He was placed under observation in telemetry, Troponin mildly elevated at 0.2 , Cardiology consulted and cleared pt Started on rocephin and zithromax IV for LLL pneumonia, Thiamine, falic acid, Librium RTC and Ativan PRN for withdrawal symptoms At present, pt is Chest pain free, cough better, afebrile, no leukocytosis. No signs of Alcohol withdrawal. He was seen by Physical therapy and his gait is stable. 1.Chest pain , atypical prob musculoskeletal Elevated Troponin, unlikely ischemia prob chronic Troponin leak troponin x3 elevated but flat at 0.2 cardiology consulted and case discussed with EKG showed no ST-T wave changes . Most likely troponin elevation not related to acute ischemia Will d/c therapeutic lovenox cont ASA 2.LLL Pneumonia seen on Xray at present in no respiratory distress Received rocephin and zithromax IV Afrebrile and with no WBC count Duonebs q4 hours and PRN q2 Negative mycoplasma and legionellaAg 3.Mild QTc prolongation avoid QT prolongation agents 4.ETOH abuse/ withdrawal precautions substance abuse ,cocaine, cannabis abuse Thiamine, Folic acid daily With minimal tremors and tachycardia Continue Libriyum 25 mg po q8 Ativan PRN 5.Body Lice treated with Permethrin tx x1 6.Homeless SW consulted 7. VTE ppx lovenox Discharge Exam - Head Exam Head Exam: ATRAUMATIC, NORMAL INSPECTION, NORMOCEPHALIC - Eye Exam Eye Exam: EOMI, Normal appearance, PERRL Pupil Exam: NORMAL ACCOMODATION - ENT Exam ENT Exam: Mucous Membranes Moist, Normal External Ear Exam - Neck Exam Neck exam: Full Rom - Respiratory Exam Respiratory Exam: Rhonchi, NORMAL BREATHING PATTERN. absent: Respiratory Distress - Cardiovascular Exam Cardiovascular Exam: REGULAR RHYTHM, +S1, +S2 - GI/Abdominal Exam GI & Abdominal Exam: Normal Bowel Sounds, Soft. absent: Tenderness - Extremities Exam Extremities exam: full ROM, normal capillary refill, pedal pulses present - Back Exam Back exam: FULL ROM. absent: CVA tenderness (L), CVA tenderness (R) - Neurological Exam Neurological exam: Alert, CN II-XII Intact, Normal Gait, Oriented x3, Reflexes Normal - Psychiatric Exam Psychiatric exam: Normal Affect, Normal Mood - Skin Skin Exam: Dry, Normal Color, Warm Discharge Plan - Discharge Medications Prescriptions: Azithromycin 250 mg PO DAILY #5 tablet Cefdinir [Omnicef] 300 mg PO Q12 #10 cap chlordiazePOXIDE [Chlordiazepoxide HCl] 10 mg PO Q6 #10 cap Clopidogrel [Plavix] 75 mg PO DAILY #30 tab Folic Acid 1 mg PO DAILY #30 tab Thiamine [Vitamin B1 Tab] 100 mg PO DAILY #30 tab - Follow Up Plan Condition: GOOD Disposition: HOME/ ROUTINE Instructions: Pneumonia, Adult (DC), Drug Abuse and Drug Addiction (DC), Alcohol Abuse and Alcoholism (DC) Additional Instructions: ff up at the [facility] in 1-2 wks Abstain from Alcohol and drugs follow up in [facility] 09/28/17 3:00pm with Referrals: [facility] [Outside]
[2017-09-14 16:26] VITALS: BP 107/68; PULSE 89; TEMP 98.5; O2SAT 99
== END 2017-09-14 18:00 | disposition home or self-care (01) ==
LOC: H.ER 13:57 → H.ERHOLD 17:17 → H.TEL 21:25
PROVIDERS: ADMIT Student in an Organized Health Care Education/Training Program; ATTEND Student in an Organized Health Care Education/Training Program
DX: J18.9 Pneumonia, unspecified organism (principal); J44.0 Chronic obstructive pulmonary disease with (acute) lower respiratory infection; B85.1 Pediculosis due to Pediculus humanus corporis; F10.129 Alcohol abuse with intoxication, unspecified; F14.10 Cocaine abuse, uncomplicated; F12.10 Cannabis abuse, uncomplicated; F17.210 Nicotine dependence, cigarettes, uncomplicated; Z59.0 Homelessness; I25.2 Old myocardial infarction; R07.89 Other chest pain
CPT/HCPCS: 36415; 70450; 71046; 80048; 80053; 80320; 80324; 80345; 80346; 80349; 80353; 80358; 80361; 81003; 82803; 83880; 83992; 84145; 84484; 85025; 85027; 85378; 86738; 87040; 87070; 87449; 87804; 93005; 94150; 94640; 96365; 96366; 96367; 96368; 96372; 96375; 96376; 97161; 99285; G0378; G8978; G8979; J0456; J0696; J1650; J3411; J7040; J7050

== ENCOUNTER 2017-10-09 15:51 | Emergency (ER) | payer MEDICAID ==
[2017-10-09 15:51] VITALS: BMI 25.1
[2017-10-09 15:55] VITALS: BP 118/70; PULSE 98; RESP 16; TEMP 98; O2SAT 98
--- NOTE | 2017-10-09 16:14 | ED PDOC ---
HPI: Psych/Substance Abuse Time Seen by Provider: 10/09/17 16:12 Chief Complaint (Nursing): Alcohol Ingestion Chief Complaint (Provider): alcohol ingestion History Per: Patient (52 y/o male h/o alcohol abuse found sleeping on steps and brought to ED. States he struck head earlier today. ) Past Medical History Reviewed: Historical Data, Nursing Documentation, Vital Signs Vital Signs: Last Vital Signs Temp 98.0 F 10/09/17 15:53 Pulse 98 H 10/09/17 15:53 Resp 16 10/09/17 15:53 BP 118/70 10/09/17 15:53 Pulse Ox 98 10/09/17 15:53 - Medical History PMH: Denies: Chronic Kidney Disease - Family History Family History: States: Unknown Family Hx - Home Medications Home Medications: Ambulatory Orders Medication Instructions Recorded Aspirin [Ecotrin] 81 mg PO DAILY tabec 09/14/17 Azithromycin 250 mg PO DAILY #5 tablet 09/14/17 Cefdinir [Omnicef] 300 mg PO Q12 #10 cap 09/14/17 Clopidogrel [Plavix] 75 mg PO DAILY #30 tab 09/14/17 Folic Acid 1 mg PO DAILY #30 tab 09/14/17 Thiamine [Vitamin B1 Tab] 100 mg PO DAILY #30 tab 09/14/17 chlordiazePOXIDE [Chlordiazepoxide 10 mg PO Q6 #10 cap 09/14/17 HCl] Cephalexin [Keflex] 500 mg PO QID #28 capsule 10/09/17 - Allergies Allergies/Adverse Reactions: Allergies Allergy/AdvReac Type Severity Reaction Status Date / Time No Known Allergies Allergy Verified 10/09/17 15:53 Review of Systems ROS Statement: Except As Marked, All Systems Reviewed And Found Negative Physical Exam - Reviewed Nursing Documentation Reviewed: Yes Vital Signs Reviewed: Yes - Physical Exam Appears: Positive for: Well, Non-toxic, No Acute Distress Head Exam: Positive for: ATRAUMATIC, NORMAL INSPECTION, NORMOCEPHALIC Skin: Positive for: Normal Color, Warm, DRY Eye Exam: Positive for: EOMI, Normal appearance, PERRL ENT: Positive for: Other (left ear lobe with mild swelling and ecchymosis noted. No obvious induration.). Negative for: Normal ENT Inspection Neck: Positive for: Normal, Painless ROM Cardiovascular/Chest: Positive for: Regular Rate, Rhythm Respiratory: Positive for: CNT, Normal Breath Sounds Gastrointestinal/Abdominal: Positive for: Normal Exam, Soft Back: Positive for: Normal Inspection Extremity: Positive for: Normal ROM Neurologic/Psych: Positive for: Alert, Oriented - ECG O2 Sat by Pulse Oximetry: 98 - Progress ED Course And Treament: CT HEAD: OTHER FINDINGS: Stable nonspecific smoothly marginated low-density cystic mass along the peripheral aspect of the left parotid gland measuring 2.6 x 2.0 x 2.2 centimeters. Further clinical evaluation of this probable parotid adenoma or cyst is suggested. IMPRESSION: No bleed. Stable nonspecific left parotid mass. PROCEDURE VERBAL CONSENT PRIOR TO PROCEDURE 18 GUAGE USED TO ASPIRATE CHEESY,WHITE MATERIAL. Disposition - Clinical Impression Clinical Impression: Sebaceous cyst of ear, Parotid mass - Patient ED Disposition Is Patient to be Admitted: No - Disposition Referrals: [facility] [Outside] Rory Ramos MD [Staff Provider] - Disposition: Routine/Home Disposition Time: 17:53 Condition: FAIR Additional Instructions: FOLLOW UP WITH ENT FOR EVALUATION PAROTID MASS Prescriptions: Cephalexin [Keflex] 500 mg PO QID #28 capsule Instructions: Epidermal Cyst, Minor Head Injury (DC) Forms: [employer] (Kenyan)
--- NOTE | 2017-10-09 17:46 | CT ---
PROCEDURE: CT HEAD WITHOUT CONTRAST. HISTORY: head injury etoh COMPARISON: 09/12/2017 TECHNIQUE: Axial computed tomography images were obtained through the head/brain without intravenous contrast. Radiation dose: Total exam DLP = mGy-cm. This CT exam was performed using one or more of the following dose reduction techniques: Automated exposure control, adjustment of the mA and/or kV according to patient size, and/or use of iterative reconstruction technique. FINDINGS: HEMORRHAGE: No intracranial hemorrhage. BRAIN: No mass effect or edema. No atrophy or chronic microvascular ischemic changes. VENTRICLES: Unremarkable. No hydrocephalus. CALVARIUM: Unremarkable. PARANASAL SINUSES: Unremarkable as visualized. No significant inflammatory changes. MASTOID AIR CELLS: Unremarkable as visualized. No inflammatory changes. OTHER FINDINGS: Stable nonspecific smoothly marginated low-density cystic mass along the peripheral aspect of the left parotid gland measuring 2.6 x 2.0 x 2.2 centimeters. Further clinical evaluation of this probable parotid adenoma or cyst is suggested. IMPRESSION: No bleed. Stable nonspecific left parotid mass.
== END 2017-10-09 18:17 | disposition home or self-care (01) ==
LOC: H.ER 15:51
DX: L72.3 Sebaceous cyst (principal); D11.0 Benign neoplasm of parotid gland; Z79.82 Long term (current) use of aspirin

== ENCOUNTER 2017-10-26 23:10 | Emergency (ER) | payer MEDICAID, OTHER ==
[2017-10-26 23:10] VITALS: BMI 25.1
[2017-10-26 23:23] VITALS: RESP 18; TEMP 97.8
--- NOTE | 2017-10-26 23:56 | ED PDOC ---
HPI: Psych/Substance Abuse Time Seen by Provider: 10/26/17 23:17 Chief Complaint (Nursing): Alcohol Ingestion Chief Complaint (Provider): Alcohol Ingestion History Per: Patient History/Exam Limitations: no limitations Onset/Duration Of Symptoms: Mins (prior to arrival) Current Symptoms Are (Timing): Still Present Modifying Factor(s): Alcohol Additional Complaint(s): 52 year old male with a history of alcohol abuse brought into the ED via EMS due to alcohol intoxication. He was found in the homeless senior care and since they do not tolerate drunkenness, an ambulance was called and he was brought here. Patient admits to drinking alcohol tonight. Denies any medical complaints. PMD: none provided Past Medical History Reviewed: Historical Data, Nursing Documentation, Vital Signs Vital Signs: Last Vital Signs Temp 97.8 F 10/26/17 23:12 Pulse 100 H 10/26/17 23:12 Resp 18 10/26/17 23:12 BP 119/72 10/26/17 23:12 Pulse Ox 99 10/26/17 23:12 - Medical History PMH: Denies: Chronic Kidney Disease - Surgical History Surgical History: No Surg Hx - Family History Family History: States: Unknown Family Hx - Social History Current smoker - smoking cessation education provided: Yes (Light Smoker < 10 daily) Ex-Smoker (has not smoked in the last 12 months): No Alcohol: > 2 Drinks/Day Drugs: Cannabis, Cocaine - Home Medications Home Medications: Ambulatory Orders Medication Instructions Recorded Aspirin [Ecotrin] 81 mg PO DAILY tabec 09/14/17 Azithromycin 250 mg PO DAILY #5 tablet 09/14/17 Cefdinir [Omnicef] 300 mg PO Q12 #10 cap 09/14/17 Clopidogrel [Plavix] 75 mg PO DAILY #30 tab 09/14/17 Folic Acid 1 mg PO DAILY #30 tab 09/14/17 Thiamine [Vitamin B1 Tab] 100 mg PO DAILY #30 tab 09/14/17 chlordiazePOXIDE [Chlordiazepoxide 10 mg PO Q6 #10 cap 09/14/17 HCl] Cephalexin [Keflex] 500 mg PO QID #28 capsule 10/09/17 - Allergies Allergies/Adverse Reactions: Allergies Allergy/AdvReac Type Severity Reaction Status Date / Time No Known Allergies Allergy Verified 10/09/17 15:53 Review of Systems ROS Statement: Except As Marked, All Systems Reviewed And Found Negative Physical Exam - Reviewed Nursing Documentation Reviewed: Yes Vital Signs Reviewed: Yes - Physical Exam Appears: Positive for: No Acute Distress (comfortable) Head Exam: Positive for: ATRAUMATIC, NORMOCEPHALIC Skin: Positive for: Normal Color, Warm, Dry Eye Exam: Positive for: EOMI, Normal appearance, PERRL Cardiovascular/Chest: Positive for: Regular Rate, Rhythm. Negative for: Murmur Respiratory: Positive for: Normal Breath Sounds. Negative for: Respiratory Distress Gastrointestinal/Abdominal: Positive for: Normal Exam, Soft Extremity: Positive for: Normal ROM. Negative for: Deformity Neurologic/Psych: Positive for: Alert, Gait (unsteady ), Other (slurred speech) . Negative for: Motor/Sensory Deficits - ECG O2 Sat by Pulse Oximetry: 99 (RA) Pulse Ox Interpretation: Normal Medical Decision Making Medical Decision Making: Time: 23:17 Impression: alcohol intoxication Initial Plan: --Alcohol serum --Accucheck --Glucose, POC Patient will be under continue monitoring for clinical sobriety. Scribe Attestation: Documented by Eileen Meng, acting as a scribe for Beverly Conner MD Provider Scribe Attestation: All medical record entries made by the Scribe were at my direction and personally dictated by me. I have reviewed the chart and agree that the record accurately reflects my personal performance of the history, physical exam, medical decision making, and the department course for this patient. I have also personally directed, reviewed, and agree with the discharge instructions and disposition. Disposition - Clinical Impression Clinical Impression: Alcohol abuse - Patient ED Disposition Is Patient to be Admitted: Transfer of Care - Disposition Referrals: [facility] [Outside] - 10/28/17 Disposition: Transfer of Care Disposition Time: 07:00 Condition: STABLE Instructions: Alcohol Abuse and Alcoholism (DC) Print Language: LUXEMBOURGER Patient Signed Over To: Jemal Cook
[2017-10-27 07:02] VITALS: BP 125/84; PULSE 83
--- NOTE | 2017-10-27 07:52 | ED PDOC ---
- ECG O2 Sat by Pulse Oximetry: 96 - Progress ED Course And Treament: 1230: AAOx3. Pain free. Tolerated PO. Ambulated with no issues. Fu with pcp. Medical Decision Making Medical Decision Makin:00 Took over care from Dr. Conner. Pt is 52 y/o pending sobriety. Scribe Attestation: Documented by Geronimo Hartley, acting as a scribe for Jemal Cook MD. Provider Scribe Attestation: All medical record entries made by the Scribe were at my direction and personally dictated by me. I have reviewed the chart and agree that the record accurately reflects my personal performance of the history, physical exam, medical decision making, and the department course for this patient. I have also personally directed, reviewed, and agree with the discharge instructions and disposition. Disposition - Clinical Impression Clinical Impression: Alcohol abuse - POA Present On Arrival: None - Disposition Referrals: [facility] [Outside] - 10/28/17 Disposition: Routine/Home Disposition Time: 11:31 Condition: STABLE Instructions: Alcohol Abuse and Alcoholism (DC) Print Language: KINYARWAN[place]
[2017-10-28 11:41] VITALS: O2SAT 99
== END 2017-10-27 12:54 | disposition home or self-care (01) ==
LOC: H.ER 23:10
DX: F10.129 Alcohol abuse with intoxication, unspecified (principal); F17.200 Nicotine dependence, unspecified, uncomplicated; Z79.82 Long term (current) use of aspirin